=== PATIENT | female | born 1970 | race Caucasian/White ===

== ENCOUNTER 2021-04-18 15:18 | Emergency (ER) | payer OTHER ==
[~2021-04-18] VITALS: Ht 172.7 cm; Wt 81.8 kg
[2021-04-18] MEDS ORDERED: LISI-892 PO (15:32)
[2021-04-18] MEDS ORDERED: METF-911 PO (15:32)
[2021-04-18 15:55] VITALS: BP 154/99
== END 2021-04-18 19:45 | disposition left against medical advice (07) ==
LOC: EMS 15:18
DX: R42 Dizziness and giddiness (principal); Z53.21 Procedure and treatment not carried out due to patient leaving prior to being seen by health care provider